=== PATIENT | male | born 1975 | race Caucasian/White ===

== ENCOUNTER 2019-11-14 17:22 | Emergency (ER) | payer MEDICAID, OTHER ==
[~2019-11-14] VITALS: Ht 172.7 cm; Wt 80.0 kg
[2019-11-14] MEDS ORDERED: OLAN20TA3 PO (17:49)
[2019-11-14] MEDS ORDERED: FLUO20CA39 PO (17:49)
[2019-11-14] MEDS ORDERED: PRAZ2CAP2 PO (17:49)
[2019-11-14 18:12] LABS: CLARITY,URINE SLIGHTLY CLOUDY (Clear); COLOR,URINE YELLOW (Yellow); GLUCOSE, URINE NEGATIVE (Neg); KETONES,URINE NEGATIVE (Neg); LEUKOCYTE ESTERASE ,URINE NEGATIVE (Neg); NITRITES, URINE NEGATIVE (Neg); OCCULT BLOOD,URINE NEGATIVE (Neg); PROTEIN,URINE NEGATIVE (Neg)
[2019-11-14 18:16] LABS: UA COLLECTION TYPE CLN CATCH MIDSTREAM
[2019-11-14 18:17] LABS: MUCUS STRANDS MODERATE /LPF (Neg); SQUAMOUS EPITHELIAL CELL,UR FEW /LPF (FEW)
[2019-11-14 18:18] LABS: BACTERIA,URINE FEW /HPF (Neg); RBC,URINE 0-2 /HPF (0-2); WBC,URINE 0-4 /HPF (0-4)
[2019-11-14 18:26] LABS: BASOPHILS # (AUTO) 0.1 X10'3 (0-0.2); BASOPHILS % (AUTO) 0.9 % (0-1); EOSINOPHILS # (AUTO) 0.2 X10'3 (0-0.9); EOSINOPHILS % (AUTO) 2.1 % (0-6); HEMATOCRIT 49.6 % (42.0-52.0); HEMOGLOBIN 17.2 g/dl (14.0-17.9); LYMPHOCYTES # (AUTO) 2.3 X10'3 (1.1-4.8); LYMPHOCYTES % (AUTO) 24.1 % (21-51); MEAN CORPUSCULAR HEMOGLOBIN 30.2 PG (27.0-31.0); MEAN CORPUSCULAR HGB CONC 34.7 g/dL (33.0-36.5); MEAN PLATELET VOLUME 7.2 FL (7.4-10.4); MONOCYTES # (AUTO) 0.8 X10'3 (0-0.9); MONOCYTES % (AUTO) 8.7 % (2-12); NEUTROPHILS % (AUTO) 64.2 % (42-75); PLATELET COUNT 310 X10'3 (140-440); RED CELL DISTRIBUTION WIDTH 13.3 % (11.5-14.5); WHITE BLOOD COUNT 9.4 X10'3 (4.5-11.0)
[2019-11-14 18:28] LABS: URINE AMPHETAMINE SCREEN POSITIVE (Neg); URINE BARBITUATE SCREEN NEGATIVE (Neg); URINE BENZODIAZEPINES SCREEN NEGATIVE (Neg); URINE CANNABINOID SCREEN POSITIVE (Neg); URINE COCAINE SCREEN NEGATIVE (Neg); URINE METHADONE SCREEN NEGATIVE (Neg); URINE OPIATE SCREEN NEGATIVE (Neg); URINE PHENCYCLIDINE SCREEN NEGATIVE (Neg)
--- NOTE | 2019-11-14 18:33 | NUR ---
One to one with the patient to assess for severity of disordered thought processes. The patient has been resting on his bed. He appears disheveled with his hair sticking up. He is very pleasant and cooperative but clearly appears distressed. He stated that he has been having constant auditory hallucinations "harrassing him and telling me to do things that aren't real" He also stated that they occassionally tell him to harm himself. When asked if he felt suicidal he stated, "It would be the better alternative" His anxiety is very high. He reports he feels very paranoid. He stated that he has been a chronic meth use and last use was in the AM. He currently lives with his sister in [place] and came down to [place] to go to the [facility]. He is on [address]. He reports one prior hospitalization at [facility]. He has been off his psychiatric medications for several months. He was educated to the plan of care. PA at the bedside to assess the patient. Orders received.
[2019-11-14 18:42] LABS: ALANINE AMINOTRANSFERASE 70 U/L (12-78); ALBUMIN 4.1 G/DL (3.4-5.0); ALBUMIN/GLOBULIN RATIO 1.1 (1.1-1.5); ALKALINE PHOSPHATASE 71 IU/L (46-116); ANION GAP 10 (8-16); ASPARTATE AMINO TRANSFERASE 38 U/L (10-37); BILIRUBIN,TOTAL 1.2 MG/DL (0.1-1.0); BLOOD UREA NITROGEN 15 MG/DL (7-18); BUN/CREATININE RATIO 14.3 (5.4-32.0); CALCIUM 9.4 MG/DL (8.5-10.1); CHLORIDE 106 MMOL/L (99-107); CREATININE 1.05 MG/DL (0.60-1.10); GLUCOSE 106 MG/DL (70-104); POTASSIUM 3.8 MMOL/L (3.5-5.1); SODIUM 140 MMOL/L (135-145); TOTAL CARBON DIOXIDE 23.9 MMOL/L (24-32); TOTAL PROTEIN 7.8 G/DL (6.4-8.2); eGFR 77 ML/MIN
--- NOTE | 2019-11-14 18:47 | NUR ---
Home medications to pharmacy
[2019-11-14] MEDS ORDERED: prazosin 1mg capsule PO SCH (18:52)
[2019-11-14] MEDS ORDERED: olanzapine 10mg tablet PO SCH (18:52)
--- NOTE | 2019-11-14 21:24 | NUR ---
The patient has been sleeping on his bed but periodically yells out as if having a nightmare.
--- NOTE | 2019-11-15 00:05 | NUR ---
The patient appears to be sleeping
--- NOTE | 2019-11-15 02:33 | NUR ---
The patient appears to be sleeping
--- NOTE | 2019-11-15 04:33 | NUR ---
The patient appears to be sleeping
--- NOTE | 2019-11-15 05:15 | NUR ---
The patient appears to be sleeping
[2019-11-15 05:59] VITALS: BP 102/70
--- NOTE | 2019-11-15 07:00 | NUR ---
Pt is lying in bed, appears to be sleeping.
[2019-11-15] MEDS ORDERED: FLUoxetine 20mg capsule PO SCH (08:00)
--- NOTE | 2019-11-15 09:00 | NUR ---
Pt has been evaluated by [facility]. Pt states he is better today and wishes to be discharged to [facility].
--- NOTE | 2019-11-15 10:15 | NUR ---
Pt discharged to [facility], picked up by [facility]. All belongings including POM's returned.
== END 2019-11-15 10:15 | disposition home or self-care (01) ==
LOC: ER 17:23
DX: R45.851 Suicidal ideations (principal); R44.0 Auditory hallucinations; F15.90 Other stimulant use, unspecified, uncomplicated; F41.9 Anxiety disorder, unspecified; F32.9 Major depressive disorder, single episode, unspecified; F12.90 Cannabis use, unspecified, uncomplicated; Z72.89 Other problems related to lifestyle; Z88.0 Allergy status to penicillin; Z79.899 Other long term (current) drug therapy
CPT/HCPCS: 36415; 80053; 80305; 81001; 84443; 85025; 99285

== ENCOUNTER 2020-04-09 13:10 | Emergency (ER) | payer MEDICAID, OTHER ==
[~2020-04-09] VITALS: Ht 177.8 cm; Wt 90.9 kg
[~2020-04-09 13:10] MED LIST: FLUO20CA39 PO; OLAN20TA3 PO; PRAZ2CAP2 PO
[2020-04-09 13:27] VITALS: BP 149/93
== END 2020-04-09 14:07 | disposition home or self-care (01) ==
LOC: ER 13:11
DX: Z00.8 Encounter for other general examination (principal); F15.90 Other stimulant use, unspecified, uncomplicated; F41.9 Anxiety disorder, unspecified; F32.9 Major depressive disorder, single episode, unspecified; F12.90 Cannabis use, unspecified, uncomplicated; Z72.89 Other problems related to lifestyle; Z60.2 Problems related to living alone; Z88.0 Allergy status to penicillin; Z79.899 Other long term (current) drug therapy
CPT/HCPCS: 99281